=== PATIENT | female | born 1995 | race Two or more races ===

== ENCOUNTER 2017-02-18 19:04 | Emergency (ER) | payer MEDICAID ==
[2017-02-18] MEDS ORDERED: LORazepam 0.5 MG TABLET PO STA (20:00)
[2017-02-18] MEDS ORDERED: ACETAMINOPHEN 325 MG TABLET PO STA (20:00)
[2017-02-18] MEDS ORDERED: LORazepam 0.5 MG TABLET ONE (20:01)
[2017-02-18] MEDS ORDERED: ACETAMINOPHEN 325 MG TABLET PO ONE (20:01)
== END 2017-02-18 20:37 | disposition home or self-care (01) ==
DX: S09.90XA Unspecified injury of head, initial encounter (principal); Y04.2XXA Assault by strike against or bumped into by another person, initial encounter; F41.9 Anxiety disorder, unspecified
CPT/HCPCS: 99283; A9270

== ENCOUNTER 2017-02-22 23:58 | Emergency (ER) | payer MEDICAID ==
[2017-02-23] MEDS ORDERED: DEXAMETHASONE 10 MG/ML VIAL PO STA (00:39)
[2017-02-23] MEDS ORDERED: KETOROLAC 60 MG/2 ML VIAL IM STA (00:39)
[2017-02-23] MEDS ORDERED: KETOROLAC 60 MG/2 ML VIAL ONE (00:41)
[2017-02-23] MEDS ORDERED: DEXAMETHASONE 10 MG/ML VIAL ONE (00:41)
== END 2017-02-23 03:22 | disposition home or self-care (01) ==
DX: F07.81 Postconcussional syndrome (principal)

== ENCOUNTER 2017-03-10 18:04 | Emergency (ER) | payer MEDICAID ==
[2017-03-10 18:10] VITALS: BP 130/80
[2017-03-10] MEDS ORDERED: SUCRALFATE 1 GM/10 ML UDC PO STA (18:55)
[2017-03-10] MEDS ORDERED: MAG HYDROX/AL HYDROX/SIMETH 30 ML UDC PO STA (18:55)
[2017-03-10] MEDS ORDERED: LIDOCAINE VISCOUS 2% 15 ML UDC MM STA (18:55)
[2017-03-10] MEDS ORDERED: FAMOTIDINE 20 MG TABLET PO STA (18:56)
[2017-03-10 18:59] LABS: BILIRUBIN,URINE NEGATIVE (NEGATIVE)
[2017-03-10] MEDS ORDERED: LIDOCAINE VISCOUS 2% 15 ML UDC MM ONE (19:02)
[2017-03-10] MEDS ORDERED: SUCRALFATE 1 GM/10 ML UDC ONE (19:02)
[2017-03-10] MEDS ORDERED: FAMOTIDINE 20 MG TABLET ONE (19:02)
[2017-03-10] MEDS ORDERED: MAG HYDROX/AL HYDROX/SIMETH 30 ML UDC ONE (19:02)
[2017-03-10 19:03] LABS: HCG UR QUAL NEGATIVE; UA w/ MICROSCOPIC CHARGE YES
[2017-03-10 19:24] LABS: UR CULTURE IF IND INDICATED; WBC,URINE >25 /HPF (0-5)
[2017-03-10] MEDS ORDERED: CEPHALEXIN 250 MG CAPSULE PO STA (19:52)
[2017-03-10] MEDS ORDERED: CEPHALEXIN 250 MG CAPSULE PO ONE (19:53)
--- NOTE | 2017-03-10 19:55 | ED Physician Documentation ---
History of Present Illness - Stated complaint Stated Complaint: BACK PX - Chief complaint Chief Complaint: Abd Pain - History obtained from History obtained from: Patient, Family - History of Present Illness Timing: How many days ago (3) Pain level max: 8 Pain level now: 8 Improved by: nothing Worsened by: movement - Additonal information Additional information: Patient is a 22-year-old female who presents to the emergency department for low back pain, dysuria and urinary frequency for the past several days. Also states that she has upper epigastric abdominal pain, feels like a tightness and bloating. Worse with eating. Review of Systems Constitutional: denies: Fever, Chills Nose: denies: Rhinorrhea / runny nose, Congestion Throat: denies: Sore throat Cardiac: denies: Chest pain / pressure Respiratory: denies: Cough GI: denies: Abdominal Pain, Nausea, Vomiting : reports: Dysuria, Frequency, Hesitancy. 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 : None HEENT: None Psych: Anxiety, Panic attacks Musculoskeletal: None Derm: None Other Past Medical History: concussion - Past Surgical History Past Surgical History: No - Present Medications Home Medications: Ambulatory Orders Medication Instructions Recorded Confirmed Cephalexin [Keflex] 500 mg PO Q6H #20 capsule 03/10/17 Famotidine [Pepcid] 20 mg PO BID #30 tablet 03/10/17 Phenazopyridine HCl [Pyridium] 200 mg PO TID PRN #6 tablet 03/10/17 - Allergies Allergies/Adverse Reactions: Allergies Allergy/AdvReac Type Severity Reaction Status Date / Time No Known Drug Allergies Allergy Verified 03/10/17 18:08 - Social History Does the pt smoke?: No Smoking Status: Never smoker Does the pt drink ETOH?: No Does the pt have substance abuse?: No - Immunizations Immunizations are current?: Yes - POLST Patient has POLST: No PD ED PE NORMAL - Vitals Vital signs reviewed: Yes - General General: Alert and oriented X 3, No acute distress, Well developed/nourished - HEENT HEENT: Moist mucous membranes - Neck Neck: Supple, no meningeal sign - Cardiac Cardiac: RRR - Respiratory Respiratory: No respiratory distress, Clear bilaterally - Abdomen Abdomen: Soft, Non tender, Non distended - Female Female : Pt declined - Back Back: No CVA TTP, No spinal TTP - Derm Derm: Warm and dry - Neuro Neuro: Alert and oriented X 3 - Psych Psych: Normal mood, Normal affect Results - Vitals Vitals: Vital Signs - 24 hr 03/10/17 18:06 Temperature 36.8 C Heart Rate 85 Respiratory 18 Rate Blood Pressure 130/80 O2 Saturation 100 Oxygen O2 Source Room air - Labs Labs: Laboratory Tests 03/10/17 18:38 Urine Color YELLOW Urine Clarity CLOUDY Urine pH 6.0 Ur Specific [place] 1.020 Urine Protein TRACE Urine Glucose (UA) NEGATIVE Urine Ketones NEGATIVE Urine Occult Blood LARGE H Urine Nitrite NEGATIVE Urine Bilirubin NEGATIVE Urine Urobilinogen 0.2 (NORMAL) Ur Leukocyte Esterase SMALL H Urine RBC TNTC H Urine WBC >25 H Ur Squamous Epith Cells FEW Squamous Urine Bacteria Few Ur Microscopic Review INDICATED Urine Culture Comments INDICATED Urine HCG, Qual NEGATIVE PD MEDICAL DECISION MAKING - ED course Complexity details: reviewed old records, reviewed results, re-evaluated patient , considered differential (no cauda equina, no spinal epidural abscess, no fracture, no aortic dissection or evidence of aneursym rupture), d/w patient ED course: Patient appears to have a UTI. Will place her on antibiotics for this. Her history is also concerning for possible gastritis versus ulcer and will start on H2 leana. Will reevaluate her back pain after she has completed antibiotics. No fevers. No evidence of pyelonephritis. No vaginal discharge. No evidence of cauda equina, fracture, epidural abscess. Patient counseled regarding signs and symptoms for which I believe and urgent re-evaluation would be necessary. Patient with good understanding of and agreement to plan and is comfortable going home at this time This document was made in part using voice recognition software. While efforts are made to proofread this document, sound alike and grammatical errors may occur. Departure - Departure Disposition: Home, Self Care Clinical Impression: UTI (urinary tract infection) Qualifiers: Urinary tract infection type: acute cystitis Hematuria presence: with hematuria Qualified Code(s): N30.01 - Acute cystitis with hematuria Gastritis Qualifiers: Gastritis type: unspecified gastritis Chronicity: acute Gastritis bleeding: without bleeding Qualified Code(s): K29.00 - Acute gastritis without bleeding Condition: Good Instructions: ED PUD Vs Gastritis, ED UTI Cystitis Female Follow-Up: Yamileth Sanders ARNP [Primary Care Provider] - Within 1 week Prescriptions: Cephalexin [Keflex] 500 mg PO Q6H #20 capsule Famotidine [Pepcid] 20 mg PO BID #30 tablet Phenazopyridine HCl [Pyridium] 200 mg PO TID PRN #6 tablet PRN Reason: dysuria Comments: Take all antibiotics until gone. Return if you worsen. Discharge Date/Time: 03/10/17 20:04
== END 2017-03-10 20:04 | disposition home or self-care (01) ==
LOC: ED 18:04
DX: N30.01 Acute cystitis with hematuria (principal); K29.00 Acute gastritis without bleeding
CPT/HCPCS: 81001; 81025; 87077; 87086; 87181; 99283; A9270; 81003

== ENCOUNTER 2017-04-18 21:50 | Emergency (ER) | payer MEDICAID ==
[2017-04-18] MEDS ORDERED: PHENobarb/HYOSCY/ATROPINE/SCOP 5 ML SYRINGE PO STA (22:11)
[2017-04-18] MEDS ORDERED: MAG HYDROX/AL HYDROX/SIMETH 30 ML UDC PO STA (22:11)
[2017-04-18] MEDS ORDERED: LIDOCAINE VISCOUS 2% 15 ML UDC MM STA (22:11)
[2017-04-18] MEDS ORDERED: MAG HYDROX/AL HYDROX/SIMETH 30 ML UDC ONE (22:15)
[2017-04-18] MEDS ORDERED: LIDOCAINE VISCOUS 2% 15 ML UDC MM ONE (22:15)
[2017-04-18] MEDS ORDERED: PHENobarb/HYOSCY/ATROPINE/SCOP 5 ML SYRINGE PO ONE (22:15)
--- NOTE | 2017-04-18 23:03 | XRAY Preliminary Report ---
Exam: XR Chest 2 View PA/LAT IMPRESSION: 1. No acute abnormality seen in the chest. [facility] SITE ID: [id number]
--- NOTE | 2017-04-18 23:05 | XRAY Report ---
EXAM: CHEST RADIOGRAPHY EXAM DATE: 04/18/2017 10:58 PM. CLINICAL HISTORY: Dyspnea; inhaled water while swimming. COMPARISON: 02/23/2017. TECHNIQUE: 2 views. FINDINGS: Lungs/Pleura: No focal opacities evident. No pleural effusion. No pneumothorax. Normal volumes. Mediastinum: Heart and mediastinal contours are unremarkable. Other: Minimal scoliosis. IMPRESSION: 1. No acute abnormality seen in the chest. [facility] Referring Provider Line: [phone] SITE ID: [id number]
--- NOTE | 2017-04-18 23:15 | ED Physician Documentation ---
PD HPI CHEST PAIN - Stated complaint Stated Complaint: CHEST PX - Chief complaint Chief Complaint: Resp - History obtained from History obtained from: Patient - History of Present Illness Timing - onset: Today Timing - details: Still present Quality: Tightness Location: Substernal Similar symptoms before: Has not had sx before - Additional information Additional information: The patient is a 22-year-old female who complains of substernal chest tightness that started today after inhaling water while swimming. She also reports nasal congestion, with draining of fluid from her sinuses. Her symptoms are worse when supine. She denies cough or fever. She denies headache, nausea or vomiting. She denies history of similar symptoms in the past. She does not smoke tobacco, but does smoke pot. Review of Systems Constitutional: denies: Fever Eyes: denies: Irritation Ears: denies: Drainage/discharge Nose: reports: Congestion Throat: denies: Sore throat Cardiac: reports: Chest pain / pressure. 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 : None HEENT: None Psych: Anxiety, Panic attacks Musculoskeletal: None Derm: None - Past Surgical History Past Surgical History: No - Present Medications Home Medications: Ambulatory Orders Medication Instructions Recorded Confirmed Oxymetazoline HCl [Afrin] 15 ml NS BID #1 mist 04/18/17 - Allergies Allergies/Adverse Reactions: Allergies Allergy/AdvReac Type Severity Reaction Status Date / Time No Known Drug Allergies Allergy Verified 04/18/17 22:14 - Social History Does the pt smoke?: No Smoking Status: Never smoker Does the pt drink ETOH?: No Does the pt have substance abuse?: No Substance Use and Type: Marijuana - Immunizations Immunizations are current?: Yes - POLST Patient has POLST: No PD ED PE NORMAL - Vitals Vital signs reviewed: Yes (initially hypertensive.) - General General: Alert and oriented X 3, Well developed/nourished - HEENT HEENT: Atraumatic, EOMI, Ears normal, Pharynx benign - Neck Neck: Supple, no meningeal sign, No adenopathy, No JVD - Cardiac Cardiac: RRR, No murmur - Respiratory Respiratory: No respiratory distress, Clear bilaterally - Abdomen Abdomen: Soft, No organomegaly, Other (Mild epigastric discomfort to palpation.) - Back Back: No CVA TTP - Derm Derm: No rash - Extremities Extremities: No edema, No calf tenderness / cord - Neuro Neuro: Alert and oriented X 3, No motor deficit, Normal speech Results - Vitals Vitals: Oxygen O2 Source Room air - Rads (name of study) 2-view CXR Radiology: Prelim report reviewed, EMP read contemporaneously, See rad report ( No acute cardiopulmonary abnormality seen.) PD MEDICAL DECISION MAKING - ED course Complexity details: reviewed results, re-evaluated patient, considered differential, d/w patient ED course: The patient's presentation is most consistent with sinus congestion following inhalation of water while swimming. Her substernal chest pressure is most consistent with gastroesophageal reflux. Chest x-ray reveals no acute cardiopulmonary abnormality. She has no respiratory symptoms on examination, and clear breath sounds on auscultation. Treatment in the emergency department included administration of GI cocktail, which completely relieved her substernal discomfort. She is being discharged with prescription for Afrin nasal spray. 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 Departure - Departure Disposition: 01 Home, Self Care Clinical Impression: Sinus congestion GERD (gastroesophageal reflux disease) Qualifiers: Esophagitis presence: esophagitis presence not specified Qualified Code(s): K21.9 - Gastro-esophageal reflux disease without esophagitis Condition: Stable Instructions: ED GERD, ED Sinusitis No Abx Follow-Up: Yamileth Sanders ARNP [Primary Care Provider] - Prescriptions: Oxymetazoline HCl [Afrin] 15 ml NS BID #1 mist Comments: Use Afrin nasal spray as prescribed for the next 3 days. You can use liquid antacid, such as Maalox or Mylanta, if needed for epigastric discomfort. Follow-up with your primary physician if not improving within 1 week. Call to schedule an appointment. Return to the emergency department if you develop increasing chest discomfort, shortness of breath, or otherwise worsening symptoms. Discharge Date/Time: 04/18/17 23:31
[2017-04-18 23:31] VITALS: BP 138/60
== END 2017-04-18 23:31 | disposition home or self-care (01) ==
LOC: ED 21:50
DX: K21.9 Gastro-esophageal reflux disease without esophagitis (principal); R09.81 Nasal congestion
CPT/HCPCS: 71020; 99283; A9270

== ENCOUNTER 2017-08-02 19:58 | Emergency (ER) | payer MEDICAID ==
[2017-08-02 20:33] LABS: BILIRUBIN,URINE NEGATIVE (NEGATIVE)
[2017-08-02 20:35] LABS: UA CHARGE (STRIP ONLY) YES; UR CULTURE IF IND NOT INDICATED
[2017-08-02 20:36] LABS: HCG UR QUAL NEGATIVE
--- NOTE | 2017-08-02 22:05 | ED Physician Documentation ---
PD HPI FEMALE - Stated complaint Stated Complaint: FEMALE - Chief complaint Chief Complaint: Abd Pain - History obtained from History obtained from: Patient - History of Present Illness Timing - onset: How many weeks ago (about a week of symptoms with improvement for few days, now symptoms again the past 2-3 days.) Timing - details: Gradual onset, Waxing and waning Associated symptoms: Pelvic pain, Vaginal pain, Vaginal discharge, Dysuria. 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 : None HEENT: None Psych: Anxiety, Panic attacks Musculoskeletal: None Derm: None - Past Surgical History Past Surgical History: No - Present Medications Home Medications: Ambulatory Orders Medication Instructions Recorded Confirmed Oxymetazoline HCl [Afrin] 15 ml NS BID #1 mist 04/18/17 Ibuprofen [Motrin] 600 mg PO TID #20 tab 08/02/17 Metronidazole [Flagyl] 500 mg PO BID #14 tablet 08/02/17 - Allergies Allergies/Adverse Reactions: Allergies Allergy/AdvReac Type Severity Reaction Status Date / Time No Known Drug Allergies Allergy Verified 08/02/17 20:10 - Social History Does the pt smoke?: No Smoking Status: Never smoker Does the pt drink ETOH?: No Does the pt have substance abuse?: No - Immunizations Immunizations are current?: Yes - POLST Patient has POLST: No PD ED PE NORMAL - Vitals Vital signs reviewed: Yes - General General: Alert and oriented X 3, No acute distress, Well developed/nourished - HEENT HEENT: Pharynx benign - Abdomen Abdomen: Soft, Non tender - Female Female : Deferred - Back Back: No CVA TTP - Derm Derm: Normal color, Warm and dry, No rash Results - Vitals Vitals: Oxygen O2 Source Room air - Labs Labs: Laboratory Tests 10/09/17 10/09/17 20:23 20:23 Urine Color YELLOW Urine Clarity CLEAR Urine pH 7.0 Ur Specific [place] 1.010 1.010 Urine Protein NEGATIVE Urine Glucose (UA) NEGATIVE Urine Ketones NEGATIVE Urine Occult Blood NEGATIVE Urine Nitrite NEGATIVE Urine Bilirubin NEGATIVE Urine Urobilinogen 0.2 (NORMAL) Ur Leukocyte Esterase NEGATIVE Ur Microscopic Review NOT INDICATED Urine Culture Comments NOT INDICATED Urine HCG, Qual NEGATIVE PD MEDICAL DECISION MAKING - ED course Complexity details: considered differential (has had pelvic pain and some dysuria. Was seen several days ago by [facility] and Dx with BV with Rx for metrogel vaginal. She was unable to get Rx as pharmacy did not have it. Still with symptoms. Pelvic deferred and will treat empirically. ), d/w patient Departure - Departure Disposition: Home, Self Care Clinical Impression: Pelvic pain, Bacterial vaginitis Condition: Stable Record reviewed to determine appropriate education?: Yes Instructions: ED Vaginosis Bacterial Follow-Up: [facility] [Provider Group] Prescriptions: Ibuprofen [Motrin] 600 mg PO TID #20 tab Metronidazole [Flagyl] 500 mg PO BID #14 tablet Comments: Drink lots of fluids. You can treat the bacterial vaginitis with oral medications of metronidazole twice daily for a week. Use ibuprofen 600 mg 3 times a day if needed for pains. Recheck if not improved over the next few days. Discharge Date/Time: 08/02/17 22:57
[2017-08-02] MEDS ORDERED: IBUPROFEN 400 MG TABLET PO STA (22:34)
[2017-08-02] MEDS ORDERED: ACETAMINOPHEN 325 MG TABLET PO STA (22:34)
[2017-08-02] MEDS ORDERED: metroNIDAZOLE 250 MG TABLET PO STA (22:34)
[2017-08-02] MEDS ORDERED: metroNIDAZOLE 250 MG TABLET PO ONE (22:47)
[2017-08-02] MEDS ORDERED: ACETAMINOPHEN 325 MG TABLET PO ONE (22:47)
[2017-08-02] MEDS ORDERED: IBUPROFEN 400 MG TABLET PO ONE (22:47)
[2017-08-02 22:56] VITALS: BP 126/76
== END 2017-08-02 22:57 | disposition home or self-care (01) ==
LOC: ED 19:58
DX: N76.0 Acute vaginitis (principal); B96.89 Other specified bacterial agents as the cause of diseases classified elsewhere
CPT/HCPCS: 81003; 81025; 99283; A9270; 81001; 87086

== ENCOUNTER 2017-08-21 12:31 | Outpatient (CLI) | payer MEDICAID ==
[2017-08-21 14:07] LABS: THYROID STIMULATING HORMONE 0.7 uIU/mL (0.34-5.60)
[2017-08-21 14:13] LABS: PROLACTIN 13.96 ng/mL
[2017-08-21 14:35] LABS: FOLLICLE STIMULATING HORMONE 6.84 mIU/mL; LUTEINIZING HORMONE 3.12 mIU/mL
== END 2017-08-21 12:32 | disposition home or self-care (01) ==
LOC: LAB 12:31
PROVIDERS: ATTEND Registered Nurse
DX: E28.2 Polycystic ovarian syndrome (principal)
CPT/HCPCS: 36415; 82670; 83001; 83002; 84146; 84443

== ENCOUNTER 2017-09-11 12:02 | Outpatient (CLI) | payer MEDICAID | END 2017-09-11 12:03 | disposition home or self-care (01) | LOC: LAB 12:02 | PROVIDERS: ATTEND Registered Nurse | DX: E28.2 Polycystic ovarian syndrome (principal) | CPT/HCPCS: 36415; 84144 ==

== ENCOUNTER 2018-01-05 16:11 | Outpatient (CLI) | payer MEDICAID | END 2018-01-05 16:12 | LOC: LAB.R 16:11 | PROVIDERS: ATTEND Registered Nurse | DX: N76.89 Other specified inflammation of vagina and vulva (principal) | CPT/HCPCS: 87491; 87591 ==

== ENCOUNTER 2018-03-22 08:00 | Outpatient (CLI) | payer MEDICAID | END 2018-03-22 08:01 | disposition home or self-care (01) | LOC: LAB.R 08:00 | PROVIDERS: ATTEND Registered Nurse | DX: N76.0 Acute vaginitis (principal) | CPT/HCPCS: 87491; 87591 ==

== ENCOUNTER 2018-04-29 11:47 | Outpatient (CLI) | payer MEDICAID | END 2018-04-29 11:48 | disposition home or self-care (01) | LOC: LAB.R 11:47 | PROVIDERS: ATTEND Registered Nurse | DX: N76.1 Subacute and chronic vaginitis (principal) | CPT/HCPCS: 87491; 87591 ==

== ENCOUNTER 2018-05-30 10:01 | Emergency (ER) | payer MEDICAID ==
--- NOTE | 2018-05-30 11:24 | ED Physician Documentation ---
PD HPI LOWER EXT INJURY - Stated complaint Stated Complaint: R LEG LUMP - Chief complaint Chief Complaint: Ext Problem - History obtained from History obtained from: Patient - History of Present Illness PD HPI LOW EXT INJURY LOCATION: Right, Thigh Type of injury: Fall Timing - onset: How many weeks ago (she fell 2 weeks ago and bruised right thigh. It has mostly gone away except for focal lump that is tender. No redness nor drainage. It rubs often on objects during work and at home due to location lateral thigh. Still there after 2 weeks.) Timing - details: Gradual onset, Still present Worsened by: Palpating Associated symptoms: Swelling. 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 : None HEENT: None Psych: Anxiety, Panic attacks Musculoskeletal: None Derm: None - Past Surgical History Past Surgical History: No - Present Medications Home Medications: Ambulatory Orders Medication Instructions Recorded Confirmed Fluconazole [Diflucan] 150 mg PO ONCE #2 tablet 05/30/18 Naproxen [Naprosyn] 500 mg PO BID #20 tablet 05/30/18 metFORMIN [Glucophage] 05/30/18 - Allergies Allergies/Adverse Reactions: Allergies Allergy/AdvReac Type Severity Reaction Status Date / Time No Known Drug Allergies Allergy Verified 05/30/18 10:08 - Social History Does the pt smoke?: No Smoking Status: Never smoker Does the pt drink ETOH?: No Does the pt have substance abuse?: No - Immunizations Immunizations are current?: Yes - POLST Patient has POLST: No PD ED PE NORMAL - Vitals Vital signs reviewed: Yes - General General: Alert and oriented X 3, No acute distress, Well developed/nourished - Derm Derm: Normal color, Warm and dry - Extremities Extremities: Other (lateral lower right thigh with focal raised lump that is slightly fluctuant c/w hematoma under the skin. No redness nor warmth to suggest infection. Somewhat tender to palpation. Bedside U/S showing fluid vs clot in the area. ) - Neuro Neuro: No motor deficit, No sensory deficit Results - Vitals Vitals: Vital Signs - 24 hr 05/30/18 05/30/18 10:05 12:21 Temperature 36.1 C L 36.6 C Heart Rate 78 69 Respiratory 18 16 Rate Blood Pressure 147/96 H 138/84 H O2 Saturation 99 98 Oxygen O2 Source Room air PD MEDICAL DECISION MAKING - ED course Complexity details: considered differential (residual hematoma. On bedside U/S it did look like some fluid versus clot, but attempted aspiration of it only got about 3 ml of fluid. I would leave it to absorb with heat often another week or so. PMD could aspirate again then or do evacuation if it still bothers her. ), d/w patient - Sepsis Event Vital Signs: Vital Signs - 24 hr 05/30/18 05/30/18 10:05 12:21 Temperature 36.1 C L 36.6 C Heart Rate 78 69 Respiratory 18 16 Rate Blood Pressure 147/96 H 138/84 H O2 Saturation 99 98 Oxygen O2 Source Room air Departure - Departure Disposition: 01 Home, Self Care Clinical Impression: Oral thrush Thigh hematoma Qualifiers: Encounter type: initial encounter Laterality: right Qualified Code(s): S70.11XA - Contusion of right thigh, initial encounter Condition: Stable Record reviewed to determine appropriate education?: Yes Instructions: ED Hematoma Follow-Up: Yamileth Sanders ARNP [Primary Care Provider] - Prescriptions: Fluconazole [Diflucan] 150 mg PO ONCE #2 tablet Naproxen [Naprosyn] 500 mg PO BID #20 tablet Comments: Warm moist towels or heat to the hematoma area to 3 times a day to help soften it and promote absorption. He can use some anti-inflammatories such as naproxen twice daily to help with the irritation and pain of it as well. It should absorb slowly over the next week or 2. For the oral thrush, use Diflucan tablet once today and then repeat that in 3 or 4 days. That should adequately treat that. Recheck if the hematoma is not fully absorbed over the next week or 2. Discharge Date/Time: 05/30/18 12:46
[2018-05-30] MEDS ORDERED: LIDOCAINE MPF 1%-EPI 1:200000 30 ML VIAL SUBQ STA (11:45)
[2018-05-30 12:22] VITALS: BP 138/84
== END 2018-05-30 12:46 | disposition home or self-care (01) ==
LOC: ED 10:01
DX: S70.11XA Contusion of right thigh, initial encounter (principal); B37.0 Candidal stomatitis
CPT/HCPCS: 99283

== ENCOUNTER 2019-05-26 | Outpatient (CLI) | payer MEDICAID | END 2019-05-26 23:59 | disposition home or self-care (01) | DX: Z11.3 Encounter for screening for infections with a predominantly sexual mode of transmission (principal) ==

== ENCOUNTER 2019-06-22 08:34 | Outpatient (CLI) | payer MEDICAID ==
--- NOTE | 2019-06-24 15:54 | Ultrasound Report ---
Reason: INFERTILITY INVESTIGATION AND TESTING Procedure Date: 06/22/2019 Accession Number: [id number] / [id number] Procedure: US - Pelvic w/Transvaginal CPT Code: FULL RESULT: EXAM: PELVIC ULTRASOUND EXAM DATE: 06/22/2019 10:00 AM. CLINICAL HISTORY: INFERTILITY INVESTIGATION AND TESTING. COMPARISON: 01/11/2012. TECHNIQUE: Realtime transabdominal pelvic scan performed to identify the uterus and adnexa and as an overview of other pelvic structures, followed by transvaginal scan to provide greater detail of the uterus and adnexa, with static image documentation. FINDINGS: Uterus: 8.8 x 5.6 x 8.1 cm, volume 208 cc. Anteverted position. Normal overall size and echotexture. Masses: None. Fetus: Gestational sac with mean sac diameter 1.9 cm, corresponding to 6 weeks 6 days. [place] rump length measures 0.7 cm, corresponding to 6 weeks 4 days. Yolk sac measures 0.4 cm. heart rate is 125 beats per minute. Subchorionic hematoma measures 1.0 x 0.4 x 0.8 cm. Cervix: Small fluid measures 0.9 x 0.4 x 0.5 cm. Right Ovary: 3.5 x 1.4 x 1.8 cm, volume 4.6 cc. Normal echotexture and blood flow. Left Ovary: 2.8 x 1.4 x 2.0 cm, volume 4.1 cc. Simple cyst measures 1.3 cm. Normal echotexture and blood flow. Free Fluid: None. Other: None. IMPRESSION: 1. Live intrauterine with estimated gestational age 6 weeks 4 days based on sonographic measurements. Subchorionic hematoma measures 1.0 x 0.4 x 0.8 cm. 2. Normal-appearing ovaries. [facility]
== END 2019-06-22 08:35 | disposition home or self-care (01) ==
LOC: DI 08:34
PROVIDERS: ATTEND Nurse Practitioner Obstetrics & Gynecology
DX: Z31.41 Encounter for fertility testing (principal); O46.8X1 Other antepartum hemorrhage, first trimester; Z3A.01 Less than 8 weeks gestation of pregnancy
CPT/HCPCS: 76830; 76856

== ENCOUNTER 2019-06-27 11:17 | Outpatient (CLI) | payer MEDICAID ==
[2019-06-27 12:03] LABS: BASOPHILS # (AUTO) 0.1 10^3/uL (0.0-0.1); BASOPHILS % (AUTO) 0.4 %; EOSINOPHILS # (AUTO) 0.1 10^3/uL (0.0-0.7); EOSINOPHILS % (AUTO) 0.5 %; HGB - HEMOGLOBIN 15.3 g/dL (12.0-16.0); LYMPHOCYTES # (AUTO) 1.9 10^3/uL (1.5-3.5); LYMPHOCYTES % (AUTO) 13.6 %; MEAN CORPUSCULAR HEMOGLOBIN 30.5 pg (27.0-31.0); MEAN CORPUSCULAR HGB CONC 35.1 g/dL (32.0-36.0); MEAN CORPUSCULAR VOLUME 86.9 fL (81.0-99.0); MEAN PLATELET VOLUME 11.8 fL (7.9-10.8); MONOCYTES % (AUTO) 7.3 %; NEUTROPHILS # (AUTO) 10.5 10^3/uL (1.5-6.6); NEUTROPHILS % (AUTO) 77.3 %; PLT - PLATELET COUNT 261 10^3/uL (130-450); RED BLOOD COUNT 5.02 10^6/uL (4.20-5.40); WHITE BLOOD COUNT 13.7 x10^3/uL (4.8-10.8)
[2019-06-27 12:21] LABS: ALBUMIN 4.4 g/dL (3.2-5.5); ALBUMIN/GLOBULIN RATIO 1.2 (1.0-2.2); BILIRUBIN,TOTAL 0.7 mg/dL (0.2-1.0); CALCIUM 9.1 mg/dL (8.5-10.3); CREATININE 0.5 mg/dL (0.4-1.0); TOTAL PROTEIN 8.1 g/dL (6.7-8.2)
[2019-06-27 15:04] LABS: HB2 TOTAL 15.3 g/dL; HEMOGLOBIN A1C 0.51 g/dL; HEMOGLOBIN A1C % 5.2 % (4.6-6.2)
[2019-06-28 11:31] LABS: HEPATITIS B SURFACE ANTIGEN NON-REACTIVE (NON-REACTIVE)
[2019-06-28 15:16] LABS: HIV AG/AB 4TH GEN NON-REACTIVE (NON-REACTIVE)
== END 2019-06-27 11:18 | disposition home or self-care (01) ==
LOC: LAB 11:17
PROVIDERS: ATTEND Nurse Practitioner Obstetrics & Gynecology
DX: O99.210 Obesity complicating pregnancy, unspecified trimester (principal); Z32.01 Encounter for pregnancy test, result positive
CPT/HCPCS: 36415; 80053; 81599; 83036; 84550; 85025; 86592; 86762; 86850; 86900; 86901; 87340; 87389

== ENCOUNTER 2019-07-25 08:00 | Outpatient (CLI) | payer MEDICAID ==
[2019-07-25 15:44] LABS: MUDS CUTOFF CONCENTRATIONS CUTOFF CONC BELOW:
[2019-07-25 16:15] LABS: AMPHETAMINE SCREEN,URINE NEGATIVE (NEGATIVE); BENZODIAZEPINES SCREEN, URINE NEGATIVE (NEGATIVE); COCAINE SCREEN URINE NEGATIVE (NEGATIVE); METHADONE SCREEN, URINE NEGATIVE (NEGATIVE); METHAMPHETAMINES SCREEN, URINE NEGATIVE (NEGATIVE); OPIATE SCREEN, URINE NEGATIVE (NEGATIVE); TRICYCLIC ANTIDEPRESSANT,URINE NEGATIVE (NEGATIVE)
[2019-07-25 16:16] LABS: OXYCODONE SCREEN, URINE NEGATIVE (NEGATIVE); PROPOXYPHENE SCREEN, URINE NEGATIVE (NEGATIVE)
[2019-07-25 22:08] LABS: TRICHOMONAS VAGINALIS DNA NEGATIVE (NEGATIVE)
== END 2019-07-25 23:59 | disposition home or self-care (01) ==
LOC: LAB.R 08:00
PROVIDERS: ATTEND Nurse Practitioner Obstetrics & Gynecology
DX: Z34.90 Encounter for supervision of normal pregnancy, unspecified, unspecified trimester (principal); Z36.89 Encounter for other specified antenatal screening
CPT/HCPCS: 80306; 81599; 87491; 87591; 87661

== ENCOUNTER 2019-07-25 13:55 | Outpatient (CLI) | payer MEDICAID ==
[2019-07-25 14:44] LABS: ALBUMIN 3.9 g/dL (3.2-5.5); ALBUMIN/GLOBULIN RATIO 1.3 (1.0-2.2); BILIRUBIN,TOTAL 0.3 mg/dL (0.2-1.0); CALCIUM 8.6 mg/dL (8.5-10.3); CREATININE 0.5 mg/dL (0.4-1.0); TOTAL PROTEIN 6.8 g/dL (6.7-8.2)
== END 2019-07-25 13:56 | disposition home or self-care (01) ==
LOC: LAB 13:55
PROVIDERS: ATTEND Nurse Practitioner Obstetrics & Gynecology
DX: R94.5 Abnormal results of liver function studies (principal); Z36.89 Encounter for other specified antenatal screening; Z34.90 Encounter for supervision of normal pregnancy, unspecified, unspecified trimester
CPT/HCPCS: 36415; 80053; 80306; 81220; 81599; 87491; 87591; 87661

== ENCOUNTER 2019-09-18 11:43 | Inpatient (IN) | payer MEDICAID ==
[2019-09-18] MEDS ORDERED: SODIUM CHLORIDE FLUSH 0.9% 10 ML SYRINGE IVP PRN (12:00)
[2019-09-18] MEDS ORDERED: fentaNYL 100 MCG/2 ML VIAL IVP PRN (12:00)
[2019-09-18] MEDS ORDERED: OXYTOCIN/DEXTROSE 5 % 30 UNIT/500 ML BAG IV PRN ×2 (12:00→15:08)
[2019-09-18] MEDS ORDERED: ONDANSETRON 4 MG/2 ML VIAL IVP PRN (12:00)
[2019-09-18] MEDS ORDERED: LACTATED RINGERS 1,000 ML IV SCH (12:00)
--- NOTE | 2019-09-18 12:12 | HISTORY & PHYSICAL EXAMINATION ---
Admit History - Visit Reason Visit Reason: Bloody show, Other ( laborWith cervical dilatation) - Complications This : positive: None Smoking Status: Never smoker - Mother's Labs Mother's Blood Type: positive: O Mother's RH: positive: Positive Rubella Status: positive: Immune - Other Maternal History Other Maternal History: The patient is a well-developed, well-nourished, 24-year-old female. She is a 1 para 0 with an VARUN of 02/11/2020 making her approximately 19 weeks and 1 day gestation today. She called the office this morning after having noted bleeding after intercourse last night. She stated that she had a lot of cramping throughout the night. The bleeding has continued this morning though the cramping seems to have ceased. She has felt the baby move to days ago.She was seen in the office and her cervix was found to be dilated with membranes hourglassing through. No appreciable cervix could be could be felt.She has been sent to labor and delivery for further treatment and impending vaginal delivery . Meds/Allgy - Home Medications Home Medications: Ambulatory Orders Medication Instructions Recorded Confirmed Fluconazole [Diflucan] 150 mg PO ONCE #2 tablet 05/30/18 Naproxen [Naprosyn] 500 mg PO BID #20 tablet 05/30/18 metFORMIN [Glucophage] 05/30/18 - Allergies Allergies/Adverse Reactions: Allergies Allergy/AdvReac Type Severity Reaction Status Date / Time No Known Drug Allergies Allergy Verified 05/30/18 10:08 Review of Systems - Constitutional Constitutional: denies: Fatigue, Fever, Chills, Malaise - Eyes Eyes: denies: Pain, Irritation, Amaurosis, Blurred vision, Spots in vision - Ears, Nose & Throat Ears, Nose & Throat: denies: Ear pain, Hearing loss, Hearing aids, Tinnitus, Vertigo, Nasal pain, Nosebleeds, Nasal obstruction, Nasal congestion, Sore throat, Hoarseness, Bleeding gums - Cardiovascular Cariovascular: denies: Irregular heart rate, Palpitations, Chest pain, Edema, Lightheadedness - Respiratory Respiratory: denies: Cough, Sputum production, Wheezing, Snoring, Hemoptysis, Orthopnea, SOB at rest - Gastrointestinal Gastrointestinal: denies: Abdominal pain, Abdominal distention, Constipation, Diarrhea, Change in bowel habits, Rectal bleeding, Nausea, Vomiting - Genitourinary Genitourinary: denies: Dysuria, Frequency, Urgency, Hematuria, Incontinence, Flank pain - Musculoskeletal Musculoskeletal: reports: Back pain. denies: Muscle pain, Muscle aches, Stiffness, Gout, Joint pain - Integumentary Integumentary: denies: Rash, Pruritis, Lesions, Dryness, Lumps, Acne - Neurological Neurological: denies: General weakness, Focal weakness, Headache, Dizziness, Numbness, Memory problems - Psychiatric Psychiatric: denies: Depression, Anxiety, Suicidal, Delusions, Hallucinations - Endocrine Endocrine: denies: Polyuria, Polydypsia, Polyphagia, Intolerance to cold, Intolerance to heat - Hematologic/Lymphatic Hematologic/Lymphatic: denies: Anemia, Bruising, Petechiae, Blood clots, Lymphadenopathy, Bleeding tendencies - All Other Systems All Other Systems: reports: Reviewed and negative Physical - Vaginal Exam Membranes: positive: Membranes intact - Speculum Exam Speculum Exam Performed: positive: Yes - Other Notes Labor Progress Note/Additional Text: Lungs: Lungs are clear to auscultation bilaterally without wheezes, rales or rhonchi Heart: Heart has a regular rate and rhythm without murmur, S3-S4 gallop rhythms Abdomen: The abdomen is soft, pliable and nontender. The uterus is soft and nontender approximately 1 fingerbreadth below the umbilicus. Pelvic: Speculum exam revealed bulging membranes in the vagina. No cervix at al l is appreciated on digital exam. Extremity strength: Extremities are warm and dry without edema Neurologic: Cranial nerves II through XII are grossly intact. The patient is alert and oriented x3. Plan for Labor - Plan For Labor Plan for Labor: Impression: labor with cervical dilatation at 19 weeks and 1 day gestation Plan: The patient is being admitted. It does appear that she is going to deliver this severely premature . She does know that this is now previable.An ultrasound will be obtained to see if there is anything else that is noted.
[2019-09-18] MEDS ORDERED: SODIUM CHLORIDE FLUSH 0.9% 10 ML SYRINGE ONE (13:24)
[2019-09-18] MEDS ORDERED: LACTATED RINGERS 1,000 ML IV ONE (13:24)
[2019-09-18 13:44] LABS: BASOPHILS # (AUTO) 0.1 10^3/uL (0.0-0.1); BASOPHILS % (AUTO) 0.3 %; EOSINOPHILS # (AUTO) 0.1 10^3/uL (0.0-0.7); EOSINOPHILS % (AUTO) 0.3 %; HGB - HEMOGLOBIN 12.3 g/dL (12.0-16.0); LYMPHOCYTES # (AUTO) 2.3 10^3/uL (1.5-3.5); LYMPHOCYTES % (AUTO) 12.8 %; MEAN CORPUSCULAR HEMOGLOBIN 29.1 pg (27.0-31.0); MEAN CORPUSCULAR VOLUME 88.4 fL (81.0-99.0); MEAN PLATELET VOLUME 11.5 fL (7.9-10.8); MONOCYTES # (AUTO) 1.1 10^3/uL (0.0-1.0); MONOCYTES % (AUTO) 6.3 %; NEUTROPHILS # (AUTO) 14.2 10^3/uL (1.5-6.6); NEUTROPHILS % (AUTO) 79.1 %; PLT - PLATELET COUNT 225 10^3/uL (130-450); RED BLOOD COUNT 4.22 10^6/uL (4.20-5.40); RED CELL DISTRIBUTION WIDTH 13.1 % (12.0-15.0)
[2019-09-18] MEDS ORDERED: WITCH HAZEL/GLYCERIN 1 PAD TOP PRN (15:08)
[2019-09-18] MEDS ORDERED: HYDROCORTISONE 1% CREAM 28 GM TUBE PR PRN (15:08)
--- NOTE | 2019-09-18 15:18 | Ultrasound Report ---
Reason: Cervical incompetence, please get anatomy scan now Procedure Date: 09/18/2019 Accession Number: [id number] / [id number] Procedure: US - OB 14+ Weeks CPT Code: Final Report FULL RESULT: EXAM: LIMITED OBSTETRICAL ULTRASOUND EXAM DATE: 09/18/2019 01:32 PM. CLINICAL HISTORY: Cervical incompetence, please get anatomy scan now. COMPARISON: None. TECHNIQUE: Real-time sonographic evaluation of the fetus performed by the patrol police lieutenant. Multiple compliance representative static images were saved for review. Additional transvaginal imaging to more accurately evaluate cervical length/placental position/etc. DATING: Established EGA 19 weeks/to days with VARUN 4 18 20. GENERAL EVALUATION Gill . Cardiac activity: 144 bpm. movement: Visualized. Presentation: Cephalic. Placenta: Posterior position. Amniotic fluid: Normal. MVP 6.6 cm. BIOMETRY BPD: 4 cm, 18 weeks 2 days HC: 15.4 cm, 18 weeks 3 days AC: 13.9 cm, 19 weeks 2 days FL: 2.9 cm, 19 weeks EFW: 272 g, 33.1 percentile Estimated gestational age 18 weeks 5 days with VARUN of 4 22 20. ANATOMY Incomplete anatomic study. anatomic structures evaluated on current study include choroid plexus, lateral ventricles, four-chamber cardiac view, bladder, extremities. MATERNAL STRUCTURES Both ovaries unremarkable brain no free fluid. IMPRESSION: 1. Gill live intrauterine with gestational age 18 weeks/5 days based on current ultrasound. With VARUN of 4 22 20. 2. Incomplete anatomic survey, detail described above. A follow-up ultrasound to be performed in 2-4 weeks for completion of anatomic survey. 3. Cervical length to be measured on the follow-up exam. RADIA
[2019-09-18] MEDS ORDERED: IBUPROFEN 600 MG TABLET PO SCH (16:00)
[2019-09-18] MEDS ORDERED: SODIUM CHLORIDE FLUSH 0.9% 10 ML SYRINGE IVP SCH (17:00)
--- NOTE | 2019-09-18 17:11 | DELIVERY NOTE ---
Delivery Note - Labor Labor: positive: Spontaneous - Delivery Method Delivery Method: positive: Spontaneous vaginal delivery - Presentation Presentation: positive: Vertex - Nuchal Cord Nuchal Cord: positive: None - Anesthetic Anesthetic Type: - Amniotic Fluid Description Amniotic Fluid Description: positive: Clear - Episiotomy Type Episiotomy Type: positive: None - Laceration Laceration: positive: None - Delivery Outcome Delivery Outcome: positive: Miscarriage - sex: positive: Male - Cord Cord: positive: 3 vessels - Placenta Placenta: positive: Intact, Spontaneous - Estimated Blood Loss Estimated Blood Loss (in cc): 100 - Post Delivery Events Post Delivery Events: positive: Other - Delivery Comments (Free Text/Narrative) Delivery Comments (Free Text/Narrative): 24yo G1 at 19w1d by 6w US presented with postcoital bleeding. In the office she had membranes in the vagina and no cervix was appreciated. Had been pain-free. History c/w cervical incompetence. She was negative on toco on L&D. Progressed to deliver a 19w baby with a heartbeat that has persisted for hours. Placenta was spontaneous and complete at 10min. Pt has been holding baby while it passes. She has lots of support with her family and everyone is grieving per expected. Declined computer graphics illustrator. Will send placenta to path. Fetus/baby not sent to path as it is was healthy. Rh+, rubella and varicella immune, s/p flu vax, CF carrier screen neg. OK to go home after 4h of observation. Follow up in clinic in 1w. Recommend cerclage with next .
--- NOTE | 2019-09-18 17:17 | Discharge Plan ---
Discharge Plan Problem Reviewed?: Yes Disposition: Home, Self Care Condition: Good Diet: Regular Activity Restrictions: nothing in the vagina for 2 weeks Shower Restrictions: No Driving Restrictions: No No Smoking: If you smoke, Please STOP! Call for help. Follow-up with: Betty Lovett CNM, ARNP [Provider Admit Priv/Credential] - 1 Week
[2019-09-18 19:02] VITALS: BP 136/78
--- NOTE | 2019-09-18 19:12 | DISCHARGE SUMMARY ---
Physician: Neris Maldonado MD DATE OF ADMISSION: 09/18/2019 DATE OF DISCHARGE: 09/18/2019 ADMITTING DIAGNOSES 1. Cervical incompetence. 2. Intrauterine at 19 weeks. DISCHARGE DIAGNOSIS: Status post spontaneous at 19 weeks. PROCEDURES: 09/18/2019, spontaneous of a living 19-week fetus. The delivery was uncomplica abhinav. Estimated blood loss was 100 mL, and there were no lacerations. HOSPITAL COURSE: The patient was evaluated today for post-coital bleeding and was found to have memb ranes in the vagina and no cervix palpable. She was transferred to labor and delivery for care. Her labor was not augmented because it was spontaneous. After a few hours on labor and delivery, her ba g of plasencia ruptured, and she rapidly delivered her fetus with a nurse in the room. She was given he r baby boy to hold while he passed. He continued having a residual heartbeat for hours following the delivery. The patient and family are mourning and bonding appropriately. They have declined a chap sangeetha consult. The patient does not have any significant history of depression. At this point, it appears that the patient has had straight forward cervical incompetence. Her reillye r also had an early loss and required cerclage with following pregnancies, and then delivered those a t term. The patient has never had any procedures like LEEP or cryotherapy to her cervix. She had no t yet undergone her second trimester anatomy ultrasound, so I do not have a baseline cervical length. UA and culture, vaginitis panel, and gonorrhea, chlamydia and trichomonas panels were sent to rule out infectious etiology. The patient's tocolysis did not reflect any uterine activity. The patient is Rh positive. She is immune to rubella and varicella. She had negative screening for cystic fibrosis gene mutation. She has had her flu vaccine. We will have her followup in a week in clinic to assess her mood. The patient does have a history of infertility with polycystic ovarian sy ndrome and took 2 years to conceive this . She would benefit from metformin and possible Le trozole so that she does not have to wait an excessive amount of time before getting again. Cerclage is recommended for her subsequent pregnancies. CONDITION: Good. DISPOSITION: Home. MEDICATIONS: Ibuprofen p.r.n. pain. FOLLOWUP: In 1 week with Betty Lovtet, nurse jig box operator. TD: 09/18/2019 17:34
[2019-09-18 19:38] LABS: CANDIDA GROUP DNA NEGATIVE (NEGATIVE); CANDIDA KRUSEI DNA NEGATIVE (NEGATIVE); TRICHOMONAS VAGINALIS DNA NEGATIVE (NEGATIVE)
[2019-09-18 23:01] LABS: TRICHOMONAS VAGINALIS DNA NEGATIVE (NEGATIVE)
== END 2019-09-18 20:30 | disposition home or self-care (01) | DRG 805 ==
LOC: WFO 11:43 → FBP 11:44 → WFO 11:59 → FBP 12:00 → UNDOADMIN 12:00 → FBP 13:12
PROVIDERS: ADMIT Obstetrics & Gynecology; ATTEND Obstetrics & Gynecology
PROC: 10E0XZZ Delivery of Products of Conception, External Approach (ICD-10-PCS; principal; 2019-09-18)
DX: O60.12X0 Preterm labor second trimester with preterm delivery second trimester, not applicable or unspecified (principal); O34.32 Maternal care for cervical incompetence, second trimester; Z37.0 Single live birth; Z3A.19 19 weeks gestation of pregnancy; Z87.42 Personal history of other diseases of the female genital tract; Z86.39 Personal history of other endocrine, nutritional and metabolic disease
CPT/HCPCS: 36415; 76805; 85025; 86850; 86900; 86901; 87481; 87491; 87591; 87661; 87801; 99212; A9270; J7120

== ENCOUNTER 2019-10-07 00:51 | Emergency (ER) | payer MEDICAID ==
--- NOTE | 2019-10-07 01:47 | ED Physician Documentation ---
PD HPI NVD - Stated complaint Stated Complaint: VOMITING BLOOD - Chief complaint Chief Complaint: Abd Pain - History obtained from History obtained from: Patient - History of Present Illness Timing - onset: How many hours ago (1-2) Timing - details: Abrupt onset Associated symptoms: No: Fever, Abdominal pain Recently seen: Not recently seen - Additonal information Additional information: c/o nausea and vomiting that started 1-2 hours ago. On my evaluation, she tells me the symptoms have resolved. Review of Systems GI: reports: Nausea, Vomiting. denies: Abdominal Pain : denies: Dysuria, Frequency PD PAST MEDICAL HISTORY - Past Medical History Past Medical History: Yes Cardiovascular: None Respiratory: None Neuro: None Endocrine/Autoimmune: None GI: None ENTOMOLOGY PROFESSOR: None : None HEENT: None Psych: Anxiety, Panic attacks Musculoskeletal: None Derm: None - Past Surgical History Past Surgical History: No - Present Medications Home Medications: Ambulatory Orders Medication Instructions Recorded Confirmed Fluconazole [Diflucan] 150 mg PO ONCE #2 tablet 05/30/18 Naproxen [Naprosyn] 500 mg PO BID #20 tablet 05/30/18 metFORMIN [Glucophage] 05/30/18 Ondansetron Odt [Zofran] 4 mg TL Q6H PRN #10 tablet 10/07/19 - Allergies Allergies/Adverse Reactions: Allergies Allergy/AdvReac Type Severity Reaction Status Date / Time No Known Drug Allergies Allergy Verified 10/07/19 00:59 - Social History Does the pt smoke?: No Smoking Status: Never smoker Does the pt drink ETOH?: No Does the pt have substance abuse?: No - Immunizations Immunizations are current?: Yes - POLST Patient has POLST: No PD ED PE NORMAL - Vitals Vital signs reviewed: Yes - General General: No acute distress, Well developed/nourished, Other (asleep, slow to awaken, requires repeated verbal stimulus to respond and keep awake. answers quietly but appropriately) - HEENT HEENT: Atraumatic, PERRL, EOMI, Moist mucous membranes - Cardiac Cardiac: RRR, No murmur - Respiratory Respiratory: No respiratory distress, Clear bilaterally - Abdomen Abdomen: Soft, Non tender Results - Vitals Vitals: Vital Signs - 24 hr 10/07/19 10/07/19 10/07/19 00:57 01:58 02:04 Temperature 37.3 C Heart Rate 66 Respiratory 17 15 15 Rate Blood Pressure 120/72 O2 Saturation 100 10/07/19 10/07/19 03:16 03:19 Temperature 36.7 C Heart Rate 55 L Respiratory 16 16 Rate Blood Pressure 121/87 H O2 Saturation 98 Oxygen O2 Source Room air PD MEDICAL DECISION MAKING - ED course Complexity details: re-evaluated patient, considered differential, d/w patient ED course: patient is drowsy on my HPI, seems disinterested in providing HPI/ROS. She tells me she had nausea and vomiting tonight but this has resolved. I asked her how I can help her tonight, and she shrugs her shoulders, then tells me she doesn't want to have more nausea/vomiting. I suggested PO zofran and reevaluation, which she agrees with. On reevaluation, she is sitting up, awake and alert. She says she feels well , denies nausea/vomiting, and is comfortable with d/c home. Departure - Departure Disposition: 01 Home, Self Care Clinical Impression: Vomiting Condition: Good Instructions: ED Nausea Vomiting, ED Vomiting Diarrhea Nonspecific Ad Prescriptions: Ondansetron Odt [Zofran] 4 mg TL Q6H PRN #10 tablet PRN Reason: Nausea / Vomiting Discharge Date/Time: 10/07/19 03:20
[2019-10-07] MEDS ORDERED: ONDANSETRON ODT 4 MG TABLET TL STA (02:00)
[2019-10-07] MEDS ORDERED: ONDANSETRON ODT 4 MG Prepack 2 TL PRN (03:11)
[2019-10-07 03:17] VITALS: BP 121/87
== END 2019-10-07 03:20 | disposition home or self-care (01) ==
LOC: ED 00:51
DX: R11.2 Nausea with vomiting, unspecified (principal)
CPT/HCPCS: 99282; 99283; Q0162

== ENCOUNTER 2020-11-04 08:00 | Outpatient (CLI) | payer MEDICAID ==
[2020-11-04 20:07] LABS: CANDIDA GROUP DNA NEGATIVE (NEGATIVE); CANDIDA KRUSEI DNA NEGATIVE (NEGATIVE); TRICHOMONAS VAGINALIS DNA NEGATIVE (NEGATIVE)
== END 2020-11-04 23:59 | disposition home or self-care (01) ==
LOC: LAB.R 08:00
PROVIDERS: ATTEND Obstetrics & Gynecology
DX: R30.9 Painful micturition, unspecified (principal); N89.8 Other specified noninflammatory disorders of vagina
CPT/HCPCS: 87077; 87086; 87181; 87661; 87801

== ENCOUNTER 2021-11-15 13:29 | Emergency (ER) | payer MEDICAID ==
--- NOTE | 2021-11-15 13:51 | ED Physician Documentation ---
PD HPI URI - Stated complaint Stated Complaint: SOA/DIZZY/COUGH - Chief complaint Chief Complaint: Resp - History obtained from History obtained from: Patient - History of Present Illness Timing - onset: How many days ago (5) Timing duration: Days (5) Timing details: Abrupt onset, Still present Associated symptoms: Chills, Nasal congestion, Sore throat, Dry cough, Dyspnea. No: NVD Contributing factors: Sick contact (boyfriend positive for COVID and she tested rapid test when started with URI sympotms. Had positive test 5 days ago.). No: Immunocompromised, Unimmunized (had had prior COVID vaccinations.), COPD / asthma Improves by: No: Medication (cough medicine OTC.) Worsened by: Activity, Breathing, Other (coughing) Similar symptoms before: Has not had sx before Recently seen: Not recently seen Review of Systems Constitutional: reports: Chills, Myalgias, Fatigue. denies: Fever Nose: reports: Congestion Throat: reports: Sore throat Respiratory: reports: Dyspnea, Cough. denies: Wheezing (but feeling of tightness in chest and unable to get full breath.) GI: denies: Abdominal Pain, Nausea, Vomiting, Diarrhea Skin: denies: Rash, Lesions Neurologic: reports: Generalized weakness, Headache. denies: Near syncope, Altered mental status PD PAST MEDICAL HISTORY - Past Medical History Cardiovascular: None Respiratory: None Neuro: None Endocrine/Autoimmune: None GI: None BAND CUTTER: None : None HEENT: None Psych: Anxiety, Panic attacks Musculoskeletal: None Derm: None - Past Surgical History Past Surgical History: No - Present Medications Home Medications: Ambulatory Orders Medication Instructions Recorded Confirmed Fluconazole [Diflucan] 150 mg PO ONCE #2 tablet 05/30/18 Naproxen [Naprosyn] 500 mg PO BID #20 tablet 05/30/18 metFORMIN [Glucophage] 05/30/18 Ondansetron Odt [Zofran] 4 mg TL Q6H PRN #10 tablet 10/07/19 Albuterol Sulf [Ventolin Hfa 2 - 3 puffs INH QID 10 Days #1 11/15/21 Inhaler] inhaler Benzonatate [Tessalon] 100 mg PO TID PRN #20 cap 11/15/21 dexAMETHasone [Decadron] 4 mg PO DAILY #5 tablet 11/15/21 - Allergies Allergies/Adverse Reactions: Allergies Allergy/AdvReac Type Severity Reaction Status Date / Time No Known Drug Allergies Allergy Verified 11/15/21 13:38 - Social History Does the pt smoke?: No Smoking Status: Never smoker Does the pt drink ETOH?: No Does the pt have substance abuse?: No - Immunizations Immunizations are current?: Yes - POLST Patient has POLST: No PD ED PE NORMAL - Vitals Vital signs reviewed: Yes (sats 98% RA.) - General General: Alert and oriented X 3, No acute distress, Well developed/nourished - HEENT HEENT: Ears normal, Pharynx benign - Neck Neck: Supple, no meningeal sign, No adenopathy - Cardiac Cardiac: RRR, No murmur - Respiratory Respiratory: No respiratory distress, Clear bilaterally (no crackles nor wheezes per se, but moderately tight inspiration. ) - Abdomen Abdomen: Soft, Non tender - Derm Derm: Normal color, Warm and dry - Extremities Extremities: No edema, No calf tenderness / cord - Neuro Neuro: Alert and oriented X 3, No motor deficit, Normal speech Results - Vitals Vitals: Vital Signs - 24 hr 11/15/21 11/15/21 11/15/21 13:38 14:50 15:40 Temperature 37.0 C Heart Rate 60 96 62 Respiratory 19 18 17 Rate Blood Pressure 121/70 132/94 H O2 Saturation 98 98 Oxygen O2 Source Room air - EKG (time done) 13:56 Rate: Rate (enter#) (54) Rhythm: Sinus bradycardia [place]: Normal Intervals: Normal RI QRS: Normal Ischemia: Normal ST segments. No: ST elevation c/w ischemia, ST depression - Rads (name of study) chest xray Radiology: Prelim report reviewed (no infiltrates nor acute process.), See rad report PD MEDICAL DECISION MAKING - ED course Complexity details: reviewed results, re-evaluated patient (she feels much better with Albuterol MDI. ), considered differential (COVID infection with general URI symptoms and chest tightness. ), d/w patient Departure - Departure Disposition: 01 Home, Self Care Clinical Impression: COVID-19, Chest tightness Condition: Stable Record reviewed to determine appropriate education?: Yes Instructions: ED URI Viral W Wheezing Prescriptions: dexAMETHasone [Decadron] 4 mg PO DAILY #5 tablet Benzonatate [Tessalon] 100 mg PO TID PRN #20 cap PRN Reason: Cough Albuterol Sulf [Ventolin Hfa Inhaler] 2 - 3 puffs INH QID 10 Days #1 inhaler Comments: A well-hydrated. Tylenol if needed for fevers or pains. Your chest x-ray appears clear so no signs of pneumonia per se. COVID infection will commonly cause some irritation through the bronchioles and airways and this can be improved with the inhaler like we did today along with an anti- inflammatory and medication for cough. I transmitted your prescriptions to [facility] pharmacy. I would anticipate improvement over the next few days since you have been ill for 5 days or so already. The albuterol inhaler 2 to 3 puffs 4 times a day regularly and extra times if needed will help quite a bit. Take the Tessalon for cough and Decadron steroid as directed. Recheck if worsening over the next few days. Discharge Date/Time: 11/15/21 15:41
[2021-11-15] MEDS ORDERED: BENZONATATE 100 MG CAPSULE PO STA (14:07)
[2021-11-15] MEDS ORDERED: ALBUTEROL 1 PUFF INH STA (14:07)
[2021-11-15] MEDS ORDERED: DEXAMETHASONE 10 MG/ML VIAL PO STA (14:07)
[2021-11-15] MEDS ORDERED: CHERRY SYRUP 10 ML UDC PO ONE (14:07)
--- NOTE | 2021-11-15 15:33 | XRAY Report ---
PROCEDURE: Chest 1 View X-Ray INDICATIONS: chest pressure; cough TECHNIQUE: One view of the chest was acquired. COMPARISON: 04/18/2017, 03/13/2017 FINDINGS: Surgical changes and devices: None. Lungs and pleura: No pleural effusions or pneumothorax. Lungs are clear. Mediastinum: Mediastinal contours appear normal. Heart size is normal. Bones and chest wall: No suspicious bony lesions. Overlying soft tissues appear unremarkable. IMPRESSION: Portable chest within normal limits. Reviewed by: Ketan Craig MD on 11/15/2021 2:32 PM [facility] Approved by: Ketan Craig MD on 11/15/2021 2:32 PM [facility] Station ID: [id number]
[2021-11-15 15:42] VITALS: BP 132/94
== END 2021-11-15 15:41 | disposition home or self-care (01) ==
LOC: ED 13:29
DX: U07.1 COVID-19 (principal)
CPT/HCPCS: 71045; 93005; 94640; 94664; 99283; 99284; A9270

== ENCOUNTER 2022-01-30 12:50 | Outpatient (CLI) | payer MEDICAID | END 2022-01-30 23:59 | disposition home or self-care (01) | LOC: LAB.N 12:50 | PROVIDERS: ATTEND Family Medicine | DX: N39.0 Urinary tract infection, site not specified (principal) | CPT/HCPCS: 87077; 87086; 87181 ==

== ENCOUNTER 2022-07-03 08:00 | Outpatient (CLI) | payer MEDICAID ==
[2022-07-03 20:53] LABS: BASOPHILS # (AUTO) 0.1 10^3/uL (0.0-0.1); BASOPHILS % (AUTO) 0.4 %; EOSINOPHILS # (AUTO) 0.6 10^3/uL (0.0-0.7); EOSINOPHILS % (AUTO) 4.4 %; HCT - HEMATOCRIT 43.4 % (37.0-47.0); HGB - HEMOGLOBIN 14.9 g/dL (12.0-16.0); LYMPHOCYTES # (AUTO) 2.9 10^3/uL (1.5-3.5); LYMPHOCYTES % (AUTO) 20.9 %; MEAN CORPUSCULAR HEMOGLOBIN 30.6 pg (27.0-31.0); MEAN CORPUSCULAR HGB CONC 34.3 g/dL (32.0-36.0); MEAN CORPUSCULAR VOLUME 89.1 fL (81.0-99.0); MEAN PLATELET VOLUME 12.7 fL (7.9-10.8); MONOCYTES # (AUTO) 1.3 10^3/uL (0.0-1.0); MONOCYTES % (AUTO) 9.6 %; NEUTROPHILS # (AUTO) 8.8 10^3/uL (1.5-6.6); PLT - PLATELET COUNT 238 10^3/uL (130-450); RED BLOOD COUNT 4.87 10^6/uL (4.20-5.40); RED CELL DISTRIBUTION WIDTH 13.3 % (12.0-15.0); WHITE BLOOD COUNT 13.7 x10^3/uL (4.8-10.8)
[2022-07-03 21:03] LABS: ALBUMIN 4.4 g/dL (3.2-5.5); ALBUMIN/GLOBULIN RATIO 1.3 (1.0-2.2); BILIRUBIN,TOTAL 0.4 mg/dL (0.2-1.0); CALCIUM 9.2 mg/dL (8.5-10.3); CREATININE 0.8 mg/dL (0.4-1.0); POTASSIUM 3.7 mmol/L (3.5-5.0); TOTAL PROTEIN 7.7 g/dL (6.7-8.2)
== END 2022-07-03 23:59 | disposition home or self-care (01) ==
LOC: LAB.N 08:00
PROVIDERS: ATTEND Nurse Practitioner
DX: R10.9 Unspecified abdominal pain (principal)
CPT/HCPCS: 36415; 80053; 82150; 83690; 85025; 87086

== ENCOUNTER 2022-11-12 19:04 | Emergency (ER) | payer MEDICAID ==
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
[2022-11-12 20:46] VITALS: BP 142/79
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
== END 2022-11-12 21:07 | disposition home or self-care (01) ==
LOC: ED 19:04
DX: S20.219A Contusion of unspecified front wall of thorax, initial encounter (principal); X58.XXXA Exposure to other specified factors, initial encounter
CPT/HCPCS: 99283; 99284